=== PATIENT | male | born 1965 | race Caucasian/White ===

== ENCOUNTER → 2016-05-06 | Outpatient (CLI) | payer OTHER, MEDICAID | LOC: BHFA 15:00 | PROVIDERS: ATTEND Internal Medicine Cardiovascular Disease | DX: I73.9 Peripheral vascular disease, unspecified (principal) ==

== ENCOUNTER → 2016-08-28 | Outpatient (CLI) | payer OTHER, MEDICAID ==
[~2016-08-28] MED LIST: GADOBUTROL 10 ML VIAL IVP ONE
== END ==
LOC: FIMAGING 10:19 → EEVIPCON 10:45
PROVIDERS: ATTEND Nurse Practitioner
DX: M89.38 Hypertrophy of bone, other site (principal); M51.36 Other intervertebral disc degeneration, lumbar region; M48.06 Spinal stenosis, lumbar region; B20 Human immunodeficiency virus [HIV] disease
CPT/HCPCS: 72158; A9585

== ENCOUNTER → 2017-01-25 | Outpatient (CLI) | payer OTHER, MEDICAID | LOC: FIMAGING 08:11 | PROVIDERS: ATTEND Nurse Practitioner | DX: M25.552 Pain in left hip (principal); M76.01 Gluteal tendinitis, right hip; N30.90 Cystitis, unspecified without hematuria; Z21 Asymptomatic human immunodeficiency virus [HIV] infection status ==